=== PATIENT | female | born 1980 | race American Indian/Alaskan Native ===

== ENCOUNTER 2018-11-27 01:27 | Emergency (ER) | payer OTHER ==
[~2018-11-27] VITALS: Ht 152.4 cm; Wt 72.7 kg
--- NOTE | 2018-11-27 01:45 | NUR ---
dr gayle at bedside with pt
[2018-11-27] MEDS ORDERED: ketorolac trometh. 30mg/ml inj. IV ONE (01:50)
[2018-11-27] MEDS ORDERED: normal saline 1000ML IV soln IVB ONE (01:50)
[2018-11-27] MEDS ORDERED: LORazepam 2 mg/ml vial IV ONE (01:50)
[2018-11-27] MEDS ORDERED: iohexol 350MG/ML 100ml bottle IV ONE (02:16)
[2018-11-27] MEDS ORDERED: CYCL-1 PO (03:50)
[2018-11-27 04:22] VITALS: BP 100/66
== END 2018-11-27 04:23 | disposition home or self-care (01) ==
LOC: ER 01:28
DX: M54.2 Cervicalgia (principal); R11.2 Nausea with vomiting, unspecified; R51 Headache; Z88.1 Allergy status to other antibiotic agents; Z88.2 Allergy status to sulfonamides; Z79.899 Other long term (current) drug therapy
CPT/HCPCS: 70496; 70498; 96361; 96374; 96375; 99284; J1885; J2060; J7030; Q9967

== ENCOUNTER 2020-05-31 12:20 | Emergency (ER) | payer MEDICAID, OTHER ==
[~2020-05-31] VITALS: Ht 154.9 cm; Wt 80.0 kg
[~2020-05-31 12:20] MED LIST: CYCL-1 PO
[2020-05-31 13:52] LABS: URINE HCG NEGATIVE (NEG)
[2020-05-31 13:55] LABS: CLARITY,URINE CLEAR (Clear); COLOR,URINE YELLOW (Yellow); GLUCOSE, URINE NEGATIVE (Neg); KETONES,URINE NEGATIVE (Neg); LEUKOCYTE ESTERASE ,URINE NEGATIVE (Neg); NITRITES, URINE NEGATIVE (Neg); OCCULT BLOOD,URINE MODERATE (Neg); PROTEIN,URINE NEGATIVE (Neg); UROBILINOGEN,URINE 0.2 E.U/dL (0.2-1.0)
[2020-05-31 14:00] LABS: BASOPHILS # (AUTO) 0.1 X10'3 (0-0.2); BASOPHILS % (AUTO) 0.7 % (0-1); EOSINOPHILS # (AUTO) 0.1 X10'3 (0-0.9); EOSINOPHILS % (AUTO) 0.8 % (0-6); HEMATOCRIT 42.5 % (35.0-45.0); HEMOGLOBIN 14.4 g/dl (12.0-16.0); LYMPHOCYTES # (AUTO) 2.8 X10'3 (1.1-4.8); LYMPHOCYTES % (AUTO) 21.9 % (21-51); MEAN CORPUSCULAR HEMOGLOBIN 32.8 PG (27.0-31.0); MEAN CORPUSCULAR HGB CONC 33.8 g/dL (33.0-36.5); MEAN CORPUSCULAR VOLUME 96.9 FL (78-98); MEAN PLATELET VOLUME 8.6 FL (7.4-10.4); MONOCYTES # (AUTO) 0.7 X10'3 (0-0.9); MONOCYTES % (AUTO) 5.1 % (2-12); NEUTROPHILS # (AUTO) 9.3 X10'3 (1.8-7.7); NEUTROPHILS % (AUTO) 71.5 % (42-75); PLATELET COUNT 356 X10'3 (140-440); RED BLOOD COUNT 4.39 X10'6 (4.20-5.60); RED CELL DISTRIBUTION WIDTH 12.3 % (11.5-14.5)
[2020-05-31 14:02] LABS: UA COLLECTION TYPE CLN CATCH MIDSTREAM
[2020-05-31 14:03] LABS: BACTERIA,URINE 1+ /HPF (Neg); MUCUS STRANDS NONE SEEN /LPF (Neg); RBC,URINE 0-2 /HPF (0-2); SQUAMOUS EPITHELIAL CELL,UR MODERATE /LPF (FEW); WBC,URINE NONE SEEN /HPF (0-4)
[2020-05-31 14:06] LABS: ALANINE AMINOTRANSFERASE 26 U/L (12-78); ALKALINE PHOSPHATASE 94 IU/L (46-116); ANION GAP 16 (8-16); ASPARTATE AMINO TRANSFERASE 12 U/L (10-37); BILIRUBIN,TOTAL 0.3 MG/DL (0.1-1.0); BLOOD UREA NITROGEN 10 MG/DL (7-18); BUN/CREATININE RATIO 15.6 (6.6-38.0); CALCIUM 8.7 MG/DL (8.5-10.1); CHLORIDE 104 MMOL/L (99-107); CREATININE 0.64 MG/DL (0.40-0.90); GLUCOSE 96 MG/DL (70-104); LIPASE 85 U/L (73-393); SODIUM 141 MMOL/L (135-145); TOTAL CARBON DIOXIDE 21.4 MMOL/L (24-32); TOTAL PROTEIN 7.9 G/DL (6.4-8.2); eGFR > 90 ML/MIN
[2020-05-31 14:16] VITALS: BP 127/86
== END 2020-05-31 14:40 | disposition home or self-care (01) ==
LOC: ER 12:22
DX: N83.201 Unspecified ovarian cyst, right side (principal); R10.84 Generalized abdominal pain; Z88.1 Allergy status to other antibiotic agents; Z88.2 Allergy status to sulfonamides; Z79.899 Other long term (current) drug therapy
CPT/HCPCS: 36415; 80053; 81001; 81025; 83690; 85025; 99283